=== PATIENT | female | born 1980 | race Caucasian/White ===

== ENCOUNTER → 2023-01-13 | Outpatient (CLI) | payer OTHER | END | disposition home or self-care (01) | LOC: LABWHC1 10:54 | PROVIDERS: ATTEND Orthopaedic Surgery | DX: M25.561 Pain in right knee (principal); T84.84XA Pain due to internal orthopedic prosthetic devices, implants and grafts, initial encounter; Y82.9 Unspecified medical devices associated with adverse incidents; Z96.651 Presence of right artificial knee joint | CPT/HCPCS: 36415; 85379; 85652; 86140 ==

== ENCOUNTER → 2023-02-26 | Outpatient (CLI) | payer OTHER ==
--- NOTE | 2023-02-27 19:13 | US ---
EXAMINATION TYPE: US liver DATE OF EXAM: 02/26/2023 COMPARISON: NONE CLINICAL INDICATION: Female, 42 years old with history of R94.5 ABN LIVER FUNCTION STUDAY; Abnormal l iver function tests. RUQ tenderness. Patient states she is also having digestive issues. No other sym ptoms. TECHNIQUE: Multiple sonographic images of the right upper quadrant are obtained. FINDINGS: EXAM MEASUREMENTS: Liver Length: 18.0 cm Gallbladder Wall: 0.3 cm CBD: 0.3 cm Right Kidney: 11.3 x 4.5 x 5.2 cm DRONE SOFTWARE DEVELOPMENT ENGINEER NOTES:Limited visualization due to overlying bowel gas and patient body habitus Pancreas: Obscured by bowel gas Liver: hepatomegaly. Coarse echotexture. Gallbladder: wnl Evidence for sonographic Tenorio's sign: No CBD: WNL Right Kidney: No hydronephrosis or masses seen IMPRESSION: 1. Hepatomegaly. Mild fatty infiltration of liver is present.
== END | disposition home or self-care (01) ==
LOC: RADUSWWP 08:03
PROVIDERS: ATTEND Family Medicine
DX: K76.0 Fatty (change of) liver, not elsewhere classified (principal); R16.0 Hepatomegaly, not elsewhere classified; R94.5 Abnormal results of liver function studies; R79.89 Other specified abnormal findings of blood chemistry; R10.811 Right upper quadrant abdominal tenderness
CPT/HCPCS: 76705

== ENCOUNTER 2023-05-11 09:55 | Emergency (ER) | payer OTHER ==
--- NOTE | 2023-05-11 10:13 | ED ---
Nausea/Vomiting/Diarrhea HPI - General Chief complaint: Nausea/Vomiting/Diarrhea Stated complaint: SOB,cough Time Seen by Provider: 05/11/23 10:05 Source: patient, RN notes reviewed Mode of arrival: ambulatory Limitations: no limitations - History of Present Illness Initial comments: 42-year-old female presents to the emergency department chief complaint of vomiting, diarrhea, cough over the past 4 days. Abdominal pain is exacerbated before and after episode of emesis with last episode this morning. States that she has also been experiencing fatigue, headaches, and shortness of breath and has been using her albuterol rescue inhaler at home many times throughout the day due to feeling short of breath. She states that she was diagnosed with exercise-induced asthma as a child and does not use a every day inhaler. Denies fevers at home. States that she has been using Tylenol, Motrin, and Robitussin for symptomatic relief. Patient denies previous abdominal surgeries. Denies dysuria, hematuria, hematochezia, hematemesis. States that she has recently been following with a primary care physician at the beginning of this calendar year, reports she was diagnosed with fatty liver disease underwent an ultrasound, and is being periodically monitored for this condition. - Related Data Allergies Allergy/AdvReac Type Severity Reaction Status Date / Time No Known Allergies Allergy Verified 05/11/23 10:05 Review of Systems ROS Statement: Those systems with pertinent positive or pertinent negative responses have been documented in the HPI. ROS Other: All systems not noted in ROS Statement are negative. Past Medical History Past Medical History: Asthma History of Any Multi-Drug Resistant Organisms: None Reported Past Surgical History: Hysterectomy, Joint Replacement Additional Past Surgical History / Comment(s): r knee, Past Psychological History: No Psychological Hx Reported Smoking Status: Former smoker Past Alcohol Use History: None Reported Past Drug Use History: None Reported General Exam Limitations: no limitations General appearance: alert, in no apparent distress Head exam: Present: atraumatic, normocephalic, normal inspection Eye exam: Present: normal appearance, PERRL, EOMI. Absent: scleral icterus, conjunctival injection, periorbital swelling ENT exam: Present: normal exam, mucous membranes dry, mucous membranes moist Neck exam: Present: normal inspection, lymphadenopathy. Absent: tenderness, meningismus Respiratory exam: Present: wheezes (scattered bilateral expiratory wheezes). Absent: rales, rhonchi Cardiovascular Exam: Present: regular rate, normal rhythm, normal heart sounds. Absent: systolic murmur, diastolic murmur, rubs, gallop, clicks GI/Abdominal exam: Present: soft, tenderness (mild diffuse tenderness to deep palpation), normal bowel sounds. Absent: distended, guarding, rebound, rigid Extremities exam: Present: normal inspection, full ROM, normal capillary refill. Absent: tenderness, pedal edema, joint swelling, calf tenderness Back exam: Present: normal inspection Neurological exam: Present: alert, oriented X3, CN II-XII intact Psychiatric exam: Present: normal affect, normal mood Skin exam: Present: warm, dry, intact, normal color. Absent: rash Course Vital Signs 05/11/23 05/11/23 10:01 11:05 Temperature 98 F Pulse Rate 72 106 H Respiratory 20 18 Rate Blood Pressure 121/77 168/90 O2 Sat by Pulse 98 99 Oximetry Medical Decision Making - Medical Decision Making Was pt. sent in by a medical professional or institution (, PA, BIOLOGICAL PHOTOGRAPHER, urgent care, hospital, or [facility]...) When possible be specific @ -No Did you speak to anyone other than the patient for history (EMS, parent, family, police, friend...)? What history was obtained from this source @ -No Did you review nursing and triage notes (agree or disagree)? Why? @ -I reviewed and agree with nursing and triage notes Were old charts reviewed (outside hosp., previous admission, EMS record, old EKG , old radiological studies, urgent care reports/EKG's, [facility] records)? Report findings @ -No old charts were reviewed Differential Diagnosis (chest pain, altered mental status, abdominal pain women, abdominal pain men, vaginal bleeding, weakness, fever, dyspnea, syncope, headache, dizziness, GI bleed, back pain, seizure, CVA, palpatations, mental health, musculoskeletal)? @ -COVID 19, RSV, influenza, pneumonia, acute bronchitis, URI, asthma exacerbation, differential Abdominal Pain Women: Appendicitis, Cholecystitis, diverticulosis, ischemic bowel, pancreatitis, hepatitis, UTI, gastroenteritis, AAA, incarcerated hernia, bowel obstruction, constipation, inflammatory bowel, hepatitis, peptic ulcer disease, splenic infarction, perforated viscus, vulvitis, ovarian torsion, PID, kidney stone, placenta abruption, this is not meant to be an all-inclusive list EKG interpreted by me (3pts min.). @ -none X-rays interpreted by me (1pt min.). @ -chest X-ray reveals no acute cardiopulmonary process CT interpreted by me (1pt min.). @ -None done U/S interpreted by me (1pt. min.). @ -None done What testing was considered but not performed or refused? (CT, X-rays, U/S, labs)? Why? @ -None What meds were considered but not given or refused? Why? @ -None Did you discuss the management of the patient with other professionals (professionals i.e. , PA, BIOLOGICAL PHOTOGRAPHER, lab, RT, psych nurse, social welfare research worker, turbo generator oiler, teacher, compliance officer, caser)? Give summary @ -No Was smoking cessation discussed for >3mins.? @ -No Was critical care preformed (if so, how long)? @ -No Were there social determinants of health that impacted care today? How? (Homelessness, low income, unemployed, alcoholism, drug addiction, transportation, low edu. Level, literacy, decrease access to med. care, fdc, rehab)? @ -No Was there de-escalation of care discussed even if they declined (Discuss DNR or withdrawal of care, Hospice)? DNR status @ -No What co-morbidities impacted this encounter? (DM, HTN, Smoking, COPD, CAD, Cancer, CVA, ARF, Chemo, Hep., AIDS, mental health diagnosis, sleep apnea, morbid obesity)? @ -None Was patient admitted / discharged? Hospital course, mention meds given and route, prescriptions, significant lab abnormalities, going to OR and other pertinent info. @ -42-year-old woman nausea and vomiting, diarrhea and shortness of breath. On exam patient was found to have scattered expiratory wheezes and states that she has been frequently using her albuterol inhaler due to shortness of breath. Patient was given IV push of Solu-Medrol. Patient was also started on a liter fluid bolus due to 4 days of diarrhea and vomitting. Basic blood work was obtained to determine if there are any signs of alkalosis or infection. Given 1 g tablet Tylenol for headache and IV push of Zofran to aid in nausea relief. negative for COVID, flu, RSV. CBC and CMP unremarkable. During hospital stay, patient given extremely anxious stating that she cannot breathe and feeling like her throat is closing up. Vitals are pain at this point which revealed oxygen saturation 100%, patient was tachycardic, and slightly hypertensive. Patient was instructed to use deep breathing exercises, and states that her breathing has returned to baseline. Patient was given IV push of Ativan for anxiety. ch est X-ray with no acute cardiopulmonary process noted. revaluated patient after Ativan and that her breathing feels much better now. Patient is standing at 99 to 100% O2 on room air. Discussed findings of the patient's lab results and imaging with her, and states that they are unremarkable. Symptoms are likely secondary to other viral infection that was unable to be tested for. Instructed patient follow-up with her primary care provider within the next week for further evaluation. I discussed this case with my attending, Dr. Mendoza, agreeable with plan and for discharge. She was given starter pack of Zofran to ward helper in symptoms of nausea over the next few days as needed, continue with oral rehydration and cyclic Tylenol Motrin as needed for headaches. Undiagnosed new problem with uncertain prognosis? @ -No Drug Therapy requiring intensive monitoring for toxicity (Heparin, Nitro, Insulin, Cardizem)? @ -No Were any procedures done? @ -No Diagnosis/symptom? @ -headache, cough, diarrhea Acute, or Chronic, or Acute on Chronic? @ -acute Uncomplicated (without systemic symptoms) or Complicated (systemic symptoms)? @ -uncomplicated Side effects of treatment? @ -No Exacerbation, Progression, or Severe Exacerbation? @ -No Poses a threat to life or bodily function? How? (Chest pain, USA, NM, pneumonia, PE, COPD, DKA, ARF, appy, cholecystitis, CVA, Diverticulitis, Homicidal, Suici roxy, threat to staff... and all critical care pts) @ -unlikley - Lab Data Result diagrams: 05/11/23 10:54 05/11/23 10:54 Lab Results 05/11/23 05/11/23 05/11/23 Range/Units 10:09 10:54 10:54 WBC 7.1 (3.8-10.6) k/uL RBC 4.24 (3.80-5.40) m/uL Hgb 13.1 (11.4-16.0) gm/dL Hct 39.0 (34.0-46.0) % MCV 92.0 (80.0-100.0) fL MCH 30.8 (25.0-35.0) pg MCHC 33.5 (31.0-37.0) g/dL RDW 12.6 (11.5-15.5) % Plt Count 300 (150-450) k/uL MPV 8.6 Neutrophils % 69 % Lymphocytes % 21 % Monocytes % 4 % Eosinophils % 3 % Basophils % 1 % Neutrophils # 4.9 (1.3-7.7) k/uL Lymphocytes # 1.5 (1.0-4.8) k/uL Monocytes # 0.3 (0-1.0) k/uL Eosinophils # 0.2 (0-0.7) k/uL Basophils # 0.1 (0-0.2) k/uL Sodium 140 (137-145) mmol/L Potassium 4.2 (3.5-5.1) mmol/L Chloride 105 (98-107) mmol/L Carbon Dioxide 24 (22-30) mmol/L Anion Gap 11 mmol/L BUN 11 (7-17) mg/dL Creatinine 0.59 (0.52-1.04) mg/dL Est GFR (CKD-EPI)AfAm >90 (>60 ml/min/1.73 sqM) Est GFR (CKD-EPI)NonAf >90 (>60 ml/min/1.73 sqM) Glucose 88 (74-99) mg/dL Calcium 9.7 (8.4-10.2) mg/dL Total Bilirubin 0.4 (0.2-1.3) mg/dL AST 43 H (14-36) U/L ALT 72 H (4-34) U/L Alkaline Phosphatase 88 (38-126) U/L Total Protein 7.7 (6.3-8.2) g/dL Albumin 4.7 (3.5-5.0) g/dL Influenza Type A (PCR) Not Detected (Not Detectd) Influenza Type B (PCR) Not Detected (Not Detectd) RSV (PCR) Not Detected (Not Detectd) SARS-CoV-2 (PCR) Not Detected (Not Detectd) Disposition Clinical Impression: Diarrhea, unspecified, Cough, unspecified Narrative: Please return to the Emergency Department if symptoms worsen or any other concerns. Follow-up with your primary care provider within the next week for further evaluation of symptoms do not improve or worsen. Disposition: HOME SELF-CARE Condition: Good Instructions (If sedation given, give patient instructions): Acute Cough (ED) Is patient prescribed a controlled substance at d/c from ED?: No Referrals: Dominik Crump MD [Primary Care Provider] - 1-2 days Time of Disposition: 11:43
[2023-05-11] MEDS: ONDANSETRON 4 MG/2 ML VIAL IVP STA (10:43)
[2023-05-11] MEDS: SODIUM CHLORIDE 0.9% 1,000 ML IV STA (10:44)
[2023-05-11] MEDS: methylPREDNISolone SOD SUCCI 125 MG/2 ML VIAL IV STA (10:45)
[2023-05-11] MEDS: ACETAMINOPHEN TAB 500 MG TAB PO STA (10:46)
[2023-05-11 11:14] LABS: Basophils # (A) 0.1 k/uL (0-0.2); Basophils % (A) 1 %; Eosinophils # (A) 0.2 k/uL (0-0.7); Eosinophils % (A) 3 %; HGB 13.1 gm/dL (11.4-16.0); Lymphocytes # (A) 1.5 k/uL (1.0-4.8); Lymphocytes % (A) 21 %; MCH 30.8 pg (25.0-35.0); MCHC 33.5 g/dL (31.0-37.0); Mean Platelet Volume 8.6; Monocytes # (A) 0.3 k/uL (0-1.0); Monocytes % (A) 4 %; Neutrophils # (A) 4.9 k/uL (1.3-7.7); Neutrophils % (A) 69 %; Platelet Count 300 k/uL (150-450); RBC 4.24 m/uL (3.80-5.40); RDW 12.6 % (11.5-15.5); WBC 7.1 k/uL (3.8-10.6)
[2023-05-11] MEDS: LORazepam 2 MG/ML INJ IV STA (11:29)
--- NOTE | 2023-05-11 11:29 | XR ---
EXAMINATION TYPE: XR chest 2V DATE OF EXAM: 05/11/2023 COMPARISON: NONE TECHNIQUE: PA and lateral views submitted. HISTORY: Shortness of breath FINDINGS: The lungs are clear and there is no pneumothorax, pleural effusion, or focal pneumonia. Heart size normal and no overt failure. Osseous structures demonstrate hypertrophic and degenerative changes of the spine. IMPRESSION: 1. No acute process.
[2023-05-11 11:34] LABS: ALT 72 U/L (4-34); AST 43 U/L (14-36); African American GFR (CKD) >90 (>60 ml/min/1.73 sqM); Albumin 4.7 g/dL (3.5-5.0); Alkaline Phosphatase 88 U/L (38-126); Anion Gap 11 mmol/L; Blood Urea Nitrogen 11 mg/dL (7-17); Calcium 9.7 mg/dL (8.4-10.2); Carbon Dioxide 24 mmol/L (22-30); Chloride 105 mmol/L (98-107); Glucose 88 mg/dL (74-99); Non-African American GFR(CKD) >90 (>60 ml/min/1.73 sqM); Potassium 4.2 mmol/L (3.5-5.1); Sodium 140 mmol/L (137-145); Total Bilirubin 0.4 mg/dL (0.2-1.3); Total Protein 7.7 g/dL (6.3-8.2)
[2023-05-11 11:50] VITALS: RESP 18
[2023-05-11] MEDS: ONDANSETRON 4 MG ODT STARTER PACK 2 TAB BTL PO STA (11:56)
[2023-05-11 12:28] VITALS: BP 113/71; PULSE 71; TEMP 98.3
== END 2023-05-11 12:02 | disposition home or self-care (01) ==
LOC: EC 09:55
DX: R19.7 Diarrhea, unspecified (principal); R05.9 Cough, unspecified; Z87.891 Personal history of nicotine dependence
CPT/HCPCS: 36415; 80053; 85025; 87636; 71046; 99284; 96374; 96375 ×2; 96361; J2060; J2930; J2405; S0119

== ENCOUNTER → 2023-07-15 | Outpatient (CLI) | payer OTHER ==
--- NOTE | 2023-07-16 13:02 | CA ---
Transthoracic Echo Report Name: Mindi Haddad Age: 42 Gender: F : 1980 Exam Date: 07/15/2023 14:02 Exam Location: [facility] Ht (in): 64 Wt (lb): 205 Ordering Physician: Dominik Crump MD Attending/Referring Phys: Dominik Crump MD See Wheeler Nadiya Guzman, [facility] Procedure CPT: Indications: R06.2 WHEEZING R60.0 LOCALIZED EDEMA Cardiac Hx: Technical Quality: Good Contrast 1: Total Dose (mL): Contrast 2: Total Dose (mL): MEASUREMENTS (Male / Female) Normal Values 2D ECHO LV Diastolic Diameter PLAX 3.9 cm 4.2 - 5.9 / 3.9 - 5.3 cm LV Systolic Diameter PLAX 2.6 cm IVS Diastolic Thickness 1.1 cm 0.6 - 1.0 / 0.6 - 0.9 cm LVPW Diastolic Thickness 1.1 cm 0.6 - 1.0 / 0.6 - 0.9 cm LV Relative Wall Thickness 0.6 RV Internal Dim ED PLAX 3.1 cm LA Systolic Diameter LX 3.7 cm 3.0 - 4.0 / 2.7 - 3.8 cm LV Diastolic Volume MOD 4C 116.9 cm??? LV Systolic Volume MOD 4C 53.0 cm??? LV Ejection Fraction MOD 4C 54.7 % LV Cardiac Index MOD 4C 2387.6 cm???/min???m??? LV Diastolic Length 4C 7.7 cm LV Systolic Length 4C 6.1 cm LV Diastolic Volume MOD 2C 87.8 cm??? LV Systolic Volume MOD 2C 33.8 cm??? LV Ejection Fraction MOD 2C 61.6 % LV Cardiac Index MOD 2C 2018.5 cm???/min???m??? LV Diastolic Length 2C 8.7 cm LV Systolic Length 2C 6.8 cm LA Volume 45.4 cm??? 18 - 58 / 22 - 52 cm??? LA Volume Index 21.7 cm???/m??? 16 - 28 cm???/m??? M-MODE Aortic Root Diameter MM 2.9 cm MV E Point Septal Separation 0.3 cm AV Cusp Separation MM 2.0 cm DOPPLER MV Area PHT 3.8 cm??? Mitral E Point Velocity 80.0 cm/s Mitral A Point Velocity 75.3 cm/s Mitral E to A Ratio 1.1 MV Deceleration Time 199.3 ms TR Peak Velocity 208.6 cm/s TR Peak Gradient 17.4 mmHg Right Ventricular Systolic Press 22.4 mmHg FINDINGS Left Ventricle Left ventricular ejection fraction is estimated at 55-60 %. Left ventricular cavity size normal. Mildly increased septal wall thickness. Mildly increased posterior wall thickness. Normal left ventricular wall motion. Right Ventricle Normal right ventricular size and function. Right ventricular systolic pressure within normal limits. Right Atrium Normal right atrial size. No right atrial thrombus or mass seen. Left Atrium Normal left atrial size. No left atrial thrombus or mass present. Mitral Valve Structurally normal mitral valve. No evidence for mitral valve prolapse. No mitral stenosis. Trace mitral regurgitation. Aortic Valve Trileaflet aortic valve. No aortic valve stenosis or regurgitation. Tricuspid Valve Structurally normal tricuspid valve. Mild tricuspid regurgitation. Pulmonic Valve Structurally normal pulmonic valve. No pulmonic regurgitation. Pericardium No pericardial or pleural effusion. Aorta Normal size aortic root and proximal ascending aorta. CONCLUSIONS Normal LV size and systolic function. No significant abnormality on the Doppler exam. No pericardial effusion. No pulmonary Previewed by: Dr. Harshal Flores MD (Electronically Signed) Final Date: 16 Jul 2023 13:01
== END | disposition home or self-care (01) ==
LOC: RADECHMAIN 13:50
PROVIDERS: ATTEND Family Medicine
DX: R06.2 Wheezing (principal); R60.0 Localized edema; R06.02 Shortness of breath
CPT/HCPCS: 93306

== ENCOUNTER → 2023-08-11 | Outpatient (CLI) | payer OTHER ==
--- NOTE | 2023-08-11 11:43 | CA ---
Exercise Stress Test Report Name: Mindi Haddad Exam Date: 08/11/2023 10:11 Exam Location: [facility] Ht (in): 65 Wt (lb): 210 BSA: 2.02 Ordering Phys: Dominik Crump MD Referring Phys: Dominik Crump MD Technologist: Sandee Nicholas RDCS Age: 42 Gender: F : 1980 Procedure CPT: Indications: R06.02 SOB ICD-10 Codes: Patient History: BARNEY, FAMILY HX Medications: OMEPRAZOLE, PAXEL, FUROSEMIDE Meds past 24 hrs: Pretest Chest Pain: STRESS TEST Gerald Protocol Exercise Duration (min:sec): 04:[address] Depressions (mm): Angina Score: Goldstein Score: Resting HR (bpm): 70 Peak HR (bpm): 128 Resting BP (mmHg): 129 / 79 Peak BP (mmHg): 157 / 75 MPHR: 177 Target HR: 150 % MPHR: 72 METS: 7.1 Total Dose: Peak Dose: Atropine: Double Product: BP Response: Stress Termination: Patient request Stress Symptoms: No chest pain or symptoms Stress Summary: Patient exercised on treadmill Gerald protocol for 4 minutes 54 seconds achieving 72% of age-predicted maximal heart rate. Patient was able to complete 7.1 METS. The test was terminated because patient could not go further and patient requested. She however denied having any chest pain/ chest pressure during the protocol. ECG ANALYSIS Resting ECG: Normal sinus rhythm, normal axis, heart rate 75 bpm, normal ECG Stress ECG: Patient was not able to complete 85% of max heart rate. At 72% of max heart rate, No significant ST or T wave changes that are diagnostic for ischemia by ST segment analysis. There were no sustained arrhythmias or ectopic beats noted during the stress test CONCLUSIONS Poor exercise tolerance for patient's age achieving only 7.1 METS Nondiagnostic treadmill stress test as patient was not able to complete 75% of age-predicted maximal heart rate. Dr Harry Uriarte (Electronically Signed) Final Date: 11 August 2023 11:42
== END | disposition home or self-care (01) ==
LOC: RADNMMAIN 09:22
PROVIDERS: ATTEND Family Medicine
DX: R06.02 Shortness of breath (principal)
CPT/HCPCS: 93017

== ENCOUNTER → 2024-01-18 | Outpatient (CLI) | payer OTHER ==
--- NOTE | 2024-01-18 14:50 | MR ---
EXAMINATION TYPE: MR lumbar spine wo/w con DATE OF EXAM: 01/18/2024 2:01 PM COMPARISON: None. CLINICAL INDICATION: Female, 43 years old with history of R32 LOSS BLADD CONTROL M54.16 RADIC R20.0 N UMB, Numbness, pain, loss of bowel x 1 week, TECHNIQUE: Multiplanar, multisequence images of the lumbar spine were obtained before and after admin istration of 9 mL intravenous Gadobutrol gadolinium contrast. FINDINGS: Vertebral body heights are preserved and alignment is maintained. There is moderate to severe degenerative disc disease L5-S1 with desiccated, narrowed, and mildly bul ging disc. There is associated edematous Modic type I endplate change at this level that shows some e xpected postcontrast enhancement. Fatty matrix hemangioma T12 vertebral body. Otherwise, no suspicious bone marrow replacement. Conus medullaris is normal. Mild facet arthropathy mid to lower lumbar spine. No large focal disc herniation or significant spinal canal stenosis. Changes result in mild bilateral neuroforaminal narrowing at L5-S1. Disc material may abut the lucas sing left S1 nerve root at this level. No abnormal enhancement within the spinal canal. Incidental 2.2 cm dominant follicle or functional cyst of the right ovary. IMPRESSION: 1. Moderate to severe degenerative disc disease L5-S1 with associated edematous Modic type I endplate change. 2. Scattered mild facet arthropathy mid to lower lumbar spine. No vertebral compression collapse or m alalignment. 3. Changes result in mild bilateral neuroforaminal stenoses at L5-S1. Disc material at this level may abut the traversing left S1 nerve root. No spinal canal stenosis. [facility], , 01/18/2024 2:48 PM
== END | disposition home or self-care (01) ==
LOC: RADMRIMAIN 13:04
PROVIDERS: ATTEND Family Medicine
DX: M51.17 Intervertebral disc disorders with radiculopathy, lumbosacral region (principal); M99.73 Connective tissue and disc stenosis of intervertebral foramina of lumbar region; M47.26 Other spondylosis with radiculopathy, lumbar region; R32 Unspecified urinary incontinence; R20.0 Anesthesia of skin; N83.201 Unspecified ovarian cyst, right side
CPT/HCPCS: 72158; A9585